=== PATIENT | male | born 1990 | race Two or more races ===

== ENCOUNTER 2023-02-23 12:13 | Emergency (ER) | payer SELFPAY ==
[~2023-02-23] VITALS: Ht 167.6 cm; Wt 78.2 kg
[2023-02-23] MEDS ORDERED: cefTRIAXone SOD 1,000 MG VL IM ONE (14:15)
[2023-02-23 14:30] VITALS: BP 139/99; PULSE 113; RESP 18; TEMP 98.1; O2SAT 98
[2023-02-23] MEDS ORDERED: PROM1SOL4 PO (14:33)
[2023-02-23] MEDS ORDERED: AZIT500T66 PO (14:33)
[2023-02-25] MEDS ORDERED: IBUPROFEN 600 MG TAB PO ONE (01:18)
== END 2023-02-23 14:43 | disposition home or self-care (01) ==
LOC: ER 12:13
DX: J20.9 Acute bronchitis, unspecified (principal); J03.90 Acute tonsillitis, unspecified; R07.89 Other chest pain
CPT/HCPCS: 36415; 71046; 96372; 99284; J0696